=== PATIENT | female | born 1935 | race Caucasian/White ===

== ENCOUNTER 2018-09-22 11:25 | Observation (INO) ==
--- NOTE | 2018-09-22 11:01 | Emergency Department Note ---
ED Disposition Clinical Impression: Pneumonia, Pleural effusion, Congestive heart failure Disposition: Admitted as Observation Condition on Discharge: Fair Instructions: Pneumonia-Adult Time of Disposition: 12:50 - Critical Care Critical Care Time: No Attestation: On , the high probability of a clinically significant, sudden or life threatening deterioration of the following system(s) required my full and direct attention, intervention and personal management. The time I documented below is in addition to time spent performing reported procedures but includes the following listed in this critical care notation. Medical Decision Making - Medical Records Medical records reviewed: Yes: I reviewed the patient's medical records. - Meir Inquiry Pt receiving controlled substance: No Meir was queried for this patient: No Vital Signs: 09/22/18 10:53 09/22/18 12:20 Temperature 101.9 F H Temperature Source Axillary Pulse Rate 102 H Pulse Rate [Right Brachial] 89 Respiratory Rate 28 H Blood Pressure [Right Arm] 121/70 Blood Pressure Mean [Right Arm] 87 Blood Pressure Source [Right Arm] Automatic Cuff Blood Pressure Position [Right Arm] Sitting 02 Sat by Pulse Oximetry 94 L Oxygen Delivery Method Nasal Cannula Oxygen Flow Rate (LPM) 2 - Lab Data Lab results reviewed: Yes: I reviewed the patient's lab results. Lab Results 09/22/18 10:58: Specimen Source Left brachial, ABG pH 7.49 H, ABG pCO2 25.4 L, ABG pO2 150.6 H, ABG HCO3 18.9 L, ABG Total CO2 19.7 L, ABG O2 Saturation 99, ABG Base Excess -4.5 L, Mihai Test Patient unable 09/22/18 11:20: WBC 7.4, RBC 4.04 L, Hgb 11.8 L, Hct 38.2, MCV 94.6, MCH 29.3, MCHC 30.9 L, RDW 15.1, Plt Count 156, MPV 9.7, Neut % (Auto) 80.4 H, Lymph % (Auto) 10.7, [place] % (Auto) 8.5, Eos % (Auto) 0.3, Baso % (Auto) 0.2, Neut # (Auto) 6.0, Lymph # (Auto) 0.8, [place] # (Auto) 0.6, Eos # (Auto) 0.0, Baso # (Auto) 0.0 09/22/18 11:20: Chloride 116 H, Carbon Dioxide 22, Anion Gap 20.6 H, BUN 54 H, Creatinine 2.35 H, Estimated Creat Clear 16, Estimated GFR 20 L, Est GFR ( Amer) 24 L, Glucose 127 H, Calcium 8.9, Total Bilirubin 0.7, ALT 109 H, Alkaline Phosphatase 111, Troponin I 0.16 H, Total Protein 6.8, Albumin 3.0 L, Globulin 3.8 H, Albumin/Globulin Ratio 0.8 L 09/22/18 11:20: Lactate 1.5 09/22/18 11:20: B-Natriuretic Peptide > 5000 H Result diagrams: 09/22/18 11:20 09/22/18 11:20 Orders (Tests/Meds): ED MEDICATIONS Discontinued Medications Generic Name Dose Route Start Last Admin Trade Name Freq PRN Reason Stop Dose Admin Albuterol/Ipratropium 3 ml 09/22/18 11:20 09/22/18 12:20 Duoneb 3ml Neb IH 09/22/18 11:21 3 ml ONCE ONE Administration Methylprednisolone Sodium Succinate 125 mg 09/22/18 11:20 09/22/18 12:12 Solu-Medrol 125mg/2ml Vial IV 09/22/18 11:21 125 mg ONCE ONE Administration ORDERS Category Date Time Status Comprehensive Metabolic Panel Stat Lab 09/22/18 11:20 Results Troponin I Stat Lab 09/22/18 11:20 Results Blood Culture Stat Micro 09/22/18 11:20 Received General Adult HPI - General Chief complaint: Shortness of Breath/Dyspnea Stated complaint: shortness of air Time Seen by Provider: 09/22/18 10:58 Mode of Arrival: EMS Source of Information: EMS Limitations: No Limitations Description of Symptoms (Recalled from ER Triage Doc. by RN): very short of air, xray taken on site reveals possible chf vs pneumonia - History of Present Illness HPI narrative: fever, tachypnea, dyspnea, and decreased mental status. - Related Data Allergies Allergy/AdvReac Type Severity Reaction Status Date / Time No Known Allergies Allergy Unverified 01/31/17 14:18 [facility] History - Hepatitis A Screen Drug use history?: No High risk sexual behaviors?: No History of sexually transmitted infection?: No Currently employed?: No Childcare worker?: No Do you have indoor plumbing?: Yes Do you have electricity?: Yes Attestation statement:: This patient has been screened for Hepatitis A risk factors. I have reviewed the patient's past medical history: Yes ROS Obtained: Yes All systems reviewed & no additional complaints, Yes unobtainable due to mental condition - Constitutional Constitutional: Reports fever(s) - Cardiovascular Cardiovascular: Denies chest pain, Reports rapid heart rate - Respiratory Respiratory: Yes chest congestion, Yes cough, Yes dyspnea - Gastrointestinal Gastrointestingal: Denies: abdominal pain, vomiting - Genitourinary Female Genitourinary: Denies hematuria - Musculoskeletal Musculoskeletal: Denies joint stiffness, Denies joint swelling - Integumentary/Breasts Skin/Breast: Denies rash - Neurologic Neurologic: Reports behavioral changes, Reports confusion - Hematologic/Lymphatic Henatologic/Lymphatic: Denies easy bleeding Physical Exam - General General appearance: obtunded - Head Head exam: atraumatic - Eye Eye exam: Present: normal appearance - ENT ENT exam: Present: normal exam, normal oropharynx, mucous membranes moist, TM's normal bilaterally, normal external ear exam - Neck Neck exam: Present: normal inspection, full ROM, trachea midline. Absent: meningismus, lymphadenopathy - Respiratory Respiratory exam: Present: respiratory distress, prolonged expiratory phase, other (rhonchi , decreased BS right base) - Cardiovascular Cardiovascular exam: Present: regular rate - Abdominal Exam Abdominal exam: Present: soft. Absent: distention, tenderness - Extremities Exam Extremities exam: Present: normal inspection - Neurological Exam Neurological exam: Present: CN II-XII intact, other (unable to test). Absent: alert, oriented X3 - Psychiatric Psychiatric exam: Present: normal affect, normal mood - Skin Skin exam: Present: warm, dry, intact, normal color
[2018-09-22 11:18] LABS: ABG Base Excess -4.5 mmol/L (-2.4-2.3); ABG HCO3 18.9 mmhg (22.0-26.0); ABG Oxygen Saturation 99 % (90-100); ABG PCO2 25.4 mmhg (35.0-45.0); ABG PH 7.49 mmol/L (7.35-7.45); ABG PO2 150.6 mmhg (80-100); ABG TCO2 19.7 mmhg (23-27)
[2018-09-22 11:21] LABS: Allen's Test PATIENT UNABLE
[2018-09-22 11:47] LABS: Basophils % 0.2 % (0.1-2.0); Eosinophils % 0.3 % (0.1-12.0); Hematocrit 38.2 % (37.0-47.0); Hemoglobin 11.8 g/dL (12.2-16.2); Lymphocytes # 0.8 K/mm3 (0.7-4.5); Lymphocytes % 10.7 % (10-50); Mean Corpuscular HGB Conc 30.9 g/dL (31.8-35.4); Mean Corpuscular Volume 94.6 fl (81-99); Mean Platelet Volume 9.7 fl (7.4-10.4); Monocytes # 0.6 K/mm3 (0.1-1.0); Monocytes % 8.5 % (1.7-9.3); Neutrophils % 80.4 % (37.0-80.0); Platelet Count 156 K/mm3 (142-424); Red Blood Count 4.04 M/mm3 (4.20-5.40); Red Cell Distribution Width 15.1 % (11.5-17.5); White Blood Count 7.4 K/mm3 (4.8-10.8)
[2018-09-22 11:58] LABS: Albumin/Globulin Ratio 0.8 (1.1-1.8); Bilirubin,Total 0.7 mg/dL (0.2-1.0); Calcium 8.9 mg/dL (8.5-10.1); Globulin 3.8 gm/dl (1.3-3.2); Total Protein,Serum 6.8 gm/dL (6.4-8.2)
[2018-09-22 12:55] LABS: Anion Gap 19.9 mEq/L (5-15)
--- NOTE | 2018-09-22 14:27 | History & Physical Report ---
*Admission Date: 09/22/18 *Chief complaint: Respiratory distress *History of present illness: 83-year-old female with history of dementia who presents from shelter due to failure of outpatient treatment for pneumonia. Had x-rays performed earlier this week showing some concern for pneumonia versus CHF. Was started on antibiotics but has not improved. Due to worsening respiratory status, transferred to the ER today for reassessment. Found to have tachypnea greater than 24, tachycardia greater than 90, pneumonia on chest x-ray. Meeting criteria for sepsis. Will admit to medicine for further management of pneumonia and sepsis. Additionally patient found to have acute kidney injury and hyperna tremic dehydration. Family at bedside. Clear on CODE STATUS of DNR. Understand the patient's condition is serious. In the setting of her underlying dementia and debility, will continue with aggressive treatments however if not improving in 2 to 3 days, will reevaluate course. [facility] History I have reviewed the patient's past medical history: Yes Medical History: Reports:: Hyperlipidemia, Hypertension Denies:: Cancer, Diabetes Mellitus Type 1, Diabetes Mellitus Type 2, MRSA *Have you ever received a pneumonia vaccine?: Yes *Have you received a flu vaccine this season?: Yes Other Medical History: Reports: Anemia, Arthritis Amputation: No Fractures: No - *Social History Educational Level: Completed High School Smoking Status: Former smoker Tobacco Type: cigarettes Alcohol Intake: never *Occupational Status:: retired Housing: shelter *Travel in the last 8 weeks: None - Psychiatric History Expresses thoughts of harming self/others: None Suicide Plan Description: No Plan Family Hx:: Unable to obtain Review of Systems - Review of Systems Review of systems:: unable to obtain - *Neurologic Reports behavioral changes, Reports confusion Meds Home Medications Medication Instructions Recorded Confirmed Type Diclofen Sod/Kinesiology Tape 1 each TP DAILY 09/22/18 09/22/18 History [Diclo Gel 1%-Xrylix Sheet Kit] Donepezil HCl [Aricept 10mg 10 mg PO HS 09/22/18 09/22/18 History tablet] Gluc/Vicente-MSM#1/C/Richard/Vega/Bor 1 each PO DAILY 09/22/18 09/22/18 History [Osteo Bi-Flex Caplet] Ipratropium Stacy [Atrovent Hfa 1 puff IH Q4H 09/22/18 09/22/18 History Inh] Levothyroxine Sodium 50 mcg PO DAILY 09/22/18 09/22/18 History [Levothyroxine 50mcg (0.05mg) Tab] Memantine HCl [Namenda 10mg 10 mg PO DAILY 09/22/18 09/22/18 History Tablet] Mirtazapine 7.5 mg PO DAILY 09/22/18 09/22/18 History Multivit-Min/Iron/Folic/Vit K1 1 each PO DAILY 09/22/18 09/22/18 History [Centrum Chewables Adults Tab] Omeprazole [Omeprazole 20mg 20 mg PO DAILY 09/22/18 09/22/18 History Capsule] Polyethylene Glycol 3350 [Miralax 17 gm PO DAILYP 09/22/18 09/22/18 History 17gm Packet] Saccharomyces Boulardii [Florastor] 250 mg PO DAILY 09/22/18 09/22/18 History Allergies Allergy/AdvReac Type Severity Reaction Status Date / Time No Known Allergies Allergy Unverified 01/31/17 14:18 Exam Vital signs and Labs for Last 24 Hours: Temp Pulse Resp BP Pulse Ox 97.9 F 104 H 20 147/65 H 99 09/22/18 14:21 09/22/18 14:21 09/22/18 14:21 09/22/18 14:21 09/22/18 14:21 Laboratory Results - last 24 hr 09/22/18 10:58: Specimen Source Left brachial, ABG pH 7.49 H, ABG pCO2 25.4 L, ABG pO2 150.6 H, ABG HCO3 18.9 L, ABG Total CO2 19.7 L, ABG O2 Saturation 99, ABG Base Excess -4.5 L, Mihai Test Patient unable 09/22/18 11:20: WBC 7.4, RBC 4.04 L, Hgb 11.8 L, Hct 38.2, MCV 94.6, MCH 29.3, MCHC 30.9 L, RDW 15.1, Plt Count 156, MPV 9.7, Neut % (Auto) 80.4 H, Lymph % (Auto) 10.7, [place] % (Auto) 8.5, Eos % (Auto) 0.3, Baso % (Auto) 0.2, Neut # (Auto) 6.0, Lymph # (Auto) 0.8, [place] # (Auto) 0.6, Eos # (Auto) 0.0, Baso # (Auto) 0.0 09/22/18 11:20: Sodium 152 H*, Potassium 5.9 H, Chloride 116 H, Carbon Dioxide 22, Anion Gap 19.9 H, BUN 54 H, Creatinine 2.35 H, Estimated Creat Clear 16, Estimated GFR 20 L, Est GFR ( Amer) 24 L, Glucose 127 H, Calcium 8.9, Total Bilirubin 0.7, AST 119 H, ALT 109 H, Alkaline Phosphatase 111, Troponin I 0.16 H, Total Protein 6.8, Albumin 3.0 L, Globulin 3.8 H, Albumin/Globulin Ratio 0.8 L 09/22/18 11:20: Lactate 1.5 09/22/18 11:20: B-Natriuretic Peptide > 5000 H I & O for Last 24 hours: Intake & Output 09/19/18 09/20/18 09/21/18 09/22/18 23:59 23:59 23:59 23:59 Intake Total 150 / 150 Balance 150 / 150 Weight 47.174 kg - *Routine HEENT Exam Head: Present: normocephalic, atraumatic Eye: Present: EOMI, PERRL ENT: Present: mucous membranes moist Comments: Nasal cannula in place - *Routine Neck Exam Present: supple, full ROM - *Routine Respiratory Exam Comments: Good air movement bilaterally, fine crackles right lower base - *Routine Cardiovascular Exam Present: tachycardia. Absent: murmur - *Routine Abdominal Exam Present: soft, normoactive bowel sounds. Absent: rigid - *Routine Rectal Exam Patient deferred: visual exam - *Routine Exam Patient deferred: external exam - *Routine Extremities Exam Absent: cyanosis, clubbing, edema - *Routine Skin Exam Present: intact. Absent: cyanosis, erythema - *Routine Neurological Exam Present: alert, altered mental status. Absent: oriented X3 Nonverbal Assessment and Plan (1) Dementia Current visit: Yes Status: Chronic Qualifiers: Alzheimer's disease onset: unspecified onset Dementia behavioral disturbance: without behavioral disturbance Category: Medical Code(s): F03.90 - Unspecified dementia without behavioral disturbance (2) Congestive heart failure Current visit: Yes Status: Acute Category: Medical Code(s): I50.9 - Heart failure, unspecified (3) Hyperkalemia Current visit: Yes Status: Acute Category: Medical Code(s): E87.5 - Hyperkalemia (4) Hypernatremia Current visit: Yes Status: Acute Category: Medical Code(s): E87.0 - Hyperosmolality and hypernatremia (5) Pneumonia Current visit: Yes Status: Acute Qualifiers: Pneumonia type: due to unspecified organism Laterality: right Lung location: lower lobe of lung Qualified Code(s): J18.1 - Lobar pneumonia, unspecified organism Category: Medical Code(s): J18.9 - Pneumonia, unspecified organism (6) Sepsis Current visit: Yes Status: Acute Qualifiers: Sepsis type: sepsis due to unspecified organism Severe sepsis acute organ dysfunction type: acute respiratory failure Acute respiratory failure type: with hypoxia Category: Medical Code(s): A41.9 - Sepsis, unspecified organism (7) Krnrh-ep-jnozsgv kidney injury Current visit: Yes Status: Acute Category: Medical Code(s): N17.9 - Acute kidney failure, unspecified; N18.9 - Chronic kidney disease, unspecified - Assessment and plan all Dx Assessment and Plan for all problems:: Ms. Drew is an 83-year-old female with debility and dementia who presented with acute respiratory failure, sepsis, acute on chronic kidney injury. Initiate broad-spectrum antibiotics. Oxygen initiated with goal of greater than 92 while awake, greater than 88% while asleep. Will monitor for improvement with fluid resuscitation to address her electrolyte disturbances. Repeat labs in the morning to monitor for improvement in kidney function. Condition serious, prognosis poor. Requires inpatient acute management
[2018-09-23 07:30] LABS: Basophils % 0.1 % (0.1-2.0); Eosinophils % 0.1 % (0.1-12.0); Hematocrit 36.8 % (37.0-47.0); Hemoglobin 11.2 g/dL (12.2-16.2); Lymphocytes # 0.5 K/mm3 (0.7-4.5); Lymphocytes % 8.2 % (10-50); Mean Corpuscular HGB Conc 30.5 g/dL (31.8-35.4); Mean Corpuscular Volume 96.7 fl (81-99); Mean Platelet Volume 9.9 fl (7.4-10.4); Monocytes # 0.3 K/mm3 (0.1-1.0); Neutrophils # 5.1 K/mm3 (1.8-7.8); Neutrophils % 86.6 % (37.0-80.0); Platelet Count 125 K/mm3 (142-424); Red Blood Count 3.81 M/mm3 (4.20-5.40); Red Cell Distribution Width 15.1 % (11.5-17.5); White Blood Count 5.9 K/mm3 (4.8-10.8)
[2018-09-23 08:02] LABS: Anion Gap 15.6 mEq/L (5-15); Calcium 8.3 mg/dL (8.5-10.1)
[2018-09-23 08:36] LABS: Lymphocytes % 8 % (10-50); Monocytes % 1 % (2-9); Neutrophils % 91 % (42-76); Total Cells Counted 100
--- NOTE | 2018-09-23 09:10 | Progress Note ---
Internal Medicine - PN: Subj *Date: 09/23/18 *Time: 09:59 Interval history: Remained afebrile overnight. Stable on 2 L nasal cannula oxygen. Patient has no complaints this morning. Little more alert with yes/no responses to questions. Afebrile. Denies abdominal pain, nausea, chest pain. Exam Vital signs and Labs for Last 24 Hours: Temp Pulse Resp BP Pulse Ox 97.6 F 101 H 20 109/69 L 96 09/23/18 08:08 09/23/18 08:08 09/23/18 08:08 09/23/18 08:08 09/23/18 08:08 Laboratory Results - last 24 hr 09/22/18 10:58: Specimen Source Left brachial, ABG pH 7.49 H, ABG pCO2 25.4 L, ABG pO2 150.6 H, ABG HCO3 18.9 L, ABG Total CO2 19.7 L, ABG O2 Saturation 99, ABG Base Excess -4.5 L, Mihai Test Patient unable 09/22/18 11:20: WBC 7.4, RBC 4.04 L, Hgb 11.8 L, Hct 38.2, MCV 94.6, MCH 29.3, MCHC 30.9 L, RDW 15.1, Plt Count 156, MPV 9.7, Neut % (Auto) 80.4 H, Lymph % (Auto) 10.7, [place] % (Auto) 8.5, Eos % (Auto) 0.3, Baso % (Auto) 0.2, Neut # (Auto) 6.0, Lymph # (Auto) 0.8, [place] # (Auto) 0.6, Eos # (Auto) 0.0, Baso # (Auto) 0.0 09/22/18 11:20: Sodium 152 H*, Potassium 5.9 H, Chloride 116 H, Carbon Dioxide 22, Anion Gap 19.9 H, BUN 54 H, Creatinine 2.35 H, Estimated Creat Clear 16, Estimated GFR 20 L, Est GFR ( Amer) 24 L, Glucose 127 H, Calcium 8.9, Total Bilirubin 0.7, AST 119 H, ALT 109 H, Alkaline Phosphatase 111, Troponin I 0.16 H, Total Protein 6.8, Albumin 3.0 L, Globulin 3.8 H, Albumin/Globulin Ratio 0.8 L 09/22/18 11:20: Lactate 1.5 09/22/18 11:20: B-Natriuretic Peptide > 5000 H 09/23/18 07:00: WBC 5.9, RBC 3.81 L, Hgb 11.2 L, Hct 36.8 L, MCV 96.7, MCH 29.5, MCHC 30.5 L, RDW 15.1, Plt Count 125 L, MPV 9.9, Neut % (Auto) 86.6 H, Lymph % (Auto) 8.2 L, [place] % (Auto) 5.0, Eos % (Auto) 0.1, Baso % (Auto) 0.1, Neut # (Auto) 5.1, Lymph # (Auto) 0.5 L, [place] # (Auto) 0.3, Eos # (Auto) 0.0, Baso # (Auto) 0.0, Total Counted 100, Neutrophils % (Manual) 91 H, Lymphocytes % (Manual) 8 L, Monocytes % (Manual) 1 L, Platelet Estimate Slight decrease, RBC Morphology Not Reportable, Acanthocytes (Spur) 1+ I & O for Last 24 hours: Intake & Output 09/20/18 09/21/18 09/22/18 09/23/18 23:59 23:59 23:59 23:59 Intake Total 630 / 630 1751 / 1751 Balance 630 / 630 1751 / 1751 Weight 47.174 kg 48.619 kg Narrative: - *Routine HEENT Exam Head: Present: normocephalic, atraumatic Eye: Present: EOMI ENT: Present: mucous membranes moist Comments: Nasal cannula in place - *Routine Neck Exam Present: supple, full ROM - *Routine Respiratory Exam Comments: Good air movement bilaterally, fine stable crackles right lower base - *Routine Cardiovascular Exam Present: tachycardia. Absent: murmur - *Routine Abdominal Exam Present: soft, normoactive bowel sounds. Absent: rigid - *Routine Extremities Exam Absent: cyanosis, clubbing, edema - *Routine Skin Exam Present: intact. Absent: cyanosis, erythema - *Routine Neurological Exam Present: alert, altered mental status. Absent: oriented Assessment and Plan (1) Dementia Current visit: Yes Status: Chronic Qualifiers: Alzheimer's disease onset: unspecified onset Dementia behavioral disturbance: without behavioral disturbance Category: Medical Code(s): F03.90 - Unspecified dementia without behavioral disturbance (2) Congestive heart failure Current visit: Yes Status: Acute Category: Medical Code(s): I50.9 - Heart failure, unspecified (3) Hyperkalemia Current visit: Yes Status: Acute Category: Medical Code(s): E87.5 - Hyperkalemia (4) Hypernatremia Current visit: Yes Status: Acute Category: Medical Code(s): E87.0 - Hyperosmolality and hypernatremia (5) Pneumonia Current visit: Yes Status: Acute Qualifiers: Pneumonia type: due to unspecified organism Laterality: right Lung location: lower lobe of lung Qualified Code(s): J18.1 - Lobar pneumonia, unspecified organism Category: Medical Code(s): J18.9 - Pneumonia, unspecified organism (6) Sepsis Current visit: Yes Status: Acute Qualifiers: Sepsis type: sepsis due to unspecified organism Severe sepsis acute organ dysfunction type: acute respiratory failure Acute respiratory failure type: with hypoxia Category: Medical Code(s): A41.9 - Sepsis, unspecified organism (7) Zcxaw-iy-[id number] kidney injury Current visit: Yes Status: Acute Category: Medical Code(s): N17.9 - Acute kidney failure, unspecified; N18.9 - Chronic kidney disease, unspecified - Assessment and plan all Dx Assessment and Plan for all problems:: Patient showing marginal improvement over the past 24 hours. Tolerating fluid repletion with improvement in sodium however still slightly elevated above normal. Potassium is normalized. Kidney function gradually improving. Little bit more responsive on exam today. Continues to require supplemental oxygen. Will have nursing perform bedside swallow in anticipation of initiating diet. Overall patient showing response to current therapy. Awaiting cultures for de- escalation of antibiotics. Continues to require acute management.
--- NOTE | 2018-09-23 13:23 | Pharmacy Consult Notes ---
[facility] Pharmacy VTE Monitoring - Patient Demographics Admission date: 09/23/18 Report Date: 09/23/18 Time: 13:23 Allergies/Adverse Reactions: Patient Allergies No Known Allergies Allergy (Unverified 01/31/17 14:18) Height: 1.52 m Weight: 48.619 kg Patient Problems: Current Active Problems Pneumonia (Acute) Pleural effusion (Acute) Congestive heart failure (Acute) Hypernatremia (Acute) Hyperkalemia (Acute) Dementia (Chronic) Sepsis (Acute) Iavdg-xt-rplmsis kidney injury (Acute) - VTE Risk Labs: VTE Related Lab Results Hgb 11.2 g/dL (12.2-16.2) L 09/23/18 07:00 Hct 36.8 % (37.0-47.0) L 09/23/18 07:00 Plt Count 125 K/mm3 (142-424) L 09/23/18 07:00 BUN 46 mg/dL (7-18) H 09/23/18 07:00 Creatinine 1.93 mg/dL (0.55-1.02) H 09/23/18 07:00 Estimated Creat Clear 16 mL/min (50-200) 09/23/18 07:00 VTE Score: 3 VTE Risk Level: Low Risk - Prophylaxis Types of VTE Prophylaxis: TEDS Knee High (ZULEMA HOSE ORDER PLACED) Location of Applied Device: Bilateral Lower Extremeties
[2018-09-24 06:25] LABS: Basophils % 0.1 % (0.1-2.0); Eosinophils # 0.3 K/mm3 (0.0-0.4); Eosinophils % 3.5 % (0.1-12.0); Hemoglobin 10.5 g/dL (12.2-16.2); Lymphocytes # 0.8 K/mm3 (0.7-4.5); Lymphocytes % 10.5 % (10-50); Mean Corpuscular Volume 97.3 fl (81-99); Mean Platelet Volume 9.7 fl (7.4-10.4); Monocytes # 0.4 K/mm3 (0.1-1.0); Monocytes % 4.7 % (1.7-9.3); Neutrophils # 6.4 K/mm3 (1.8-7.8); Neutrophils % 81.3 % (37.0-80.0); Platelet Count 128 K/mm3 (142-424); Red Cell Distribution Width 15.1 % (11.5-17.5); White Blood Count 7.8 K/mm3 (4.8-10.8)
[2018-09-24 06:57] LABS: Anion Gap 13.3 mEq/L (5-15); Calcium 8.1 mg/dL (8.5-10.1)
--- NOTE | 2018-09-24 07:43 | Progress Note ---
Internal Medicine - PN: Subj *Date: 09/24/18 *Time: 07:41 Interval history: Patient is more alert, some garbled speech but is talkative and sensitive to tactile stimuli. Exam Vital signs and Labs for Last 24 Hours: Temp Pulse Resp BP Pulse Ox 97.6 F 70 18 110/61 97 09/24/18 04:00 09/24/18 06:29 09/24/18 04:00 09/24/18 04:00 09/24/18 06:29 Laboratory Results - last 24 hr 09/23/18 07:00: WBC 5.9, RBC 3.81 L, Hgb 11.2 L, Hct 36.8 L, MCV 96.7, MCH 29.5, MCHC 30.5 L, RDW 15.1, Plt Count 125 L, MPV 9.9, Neut % (Auto) 86.6 H, Lymph % (Auto) 8.2 L, [place] % (Auto) 5.0, Eos % (Auto) 0.1, Baso % (Auto) 0.1, Neut # (Auto) 5.1, Lymph # (Auto) 0.5 L, [place] # (Auto) 0.3, Eos # (Auto) 0.0, Baso # (Auto) 0.0, Total Counted 100, Neutrophils % (Manual) 91 H, Lymphocytes % (Manual) 8 L, Monocytes % (Manual) 1 L, Platelet Estimate Slight decrease, RBC Morphology Not Reportable, Acanthocytes (Spur) 1+ 09/23/18 07:00: Sodium 149 H, Potassium 4.6 D, Chloride 116 H, Carbon Dioxide 22, Anion Gap 15.6 H, BUN 46 H, Creatinine 1.93 H, Estimated Creat Clear 16, Estimated GFR 25 L, Est GFR ( Amer) 30 L D, Glucose 221 H D, Calcium 8.3 L 09/24/18 05:53: B-Natriuretic Peptide 1740 H 09/24/18 05:53: WBC 7.8 D, RBC 3.60 L, Hgb 10.5 L, Hct 35.0 L, MCV 97.3, MCH 29.2, MCHC 30.0 L, RDW 15.1, Plt Count 128 L, MPV 9.7, Neut % (Auto) 81.3 H, Lymph % (Auto) 10.5, [place] % (Auto) 4.7, Eos % (Auto) 3.5, Baso % (Auto) 0.1, Neut # (Auto) 6.4, Lymph # (Auto) 0.8, [place] # (Auto) 0.4, Eos # (Auto) 0.3, Baso # (Auto) 0.0 09/24/18 05:53: Sodium 144, Potassium 4.3, Chloride 112 H, Carbon Dioxide 23, Anion Gap 13.3, BUN 37 H, Creatinine 1.76 H, Estimated Creat Clear 19, Estimated GFR 27 L, Est GFR ( Amer) 33 L, Glucose 141 H D, Calcium 8.1 L I & O for Last 24 hours: Intake & Output 09/21/18 09/22/18 09/23/18 09/24/18 11:59 11:59 11:59 11:59 Intake Total 2381 / 2381 3289 / 3289 Balance 2381 / 2381 3289 / 3289 Weight 125 lb 107 lb 3 oz 116 lb 3 oz Narrative: Lungs are clear bilaterally, heart rate is regular. Much more combative with personal care issues per nursing staff. Oropharynx slightly dry. Moves all extremities well. Assessment and Plan (1) Dementia Current visit: Yes Status: Chronic Qualifiers: Alzheimer's disease onset: unspecified onset Dementia behavioral disturbance: without behavioral disturbance Category: Medical Code(s): F03.90 - Unspecified dementia without behavioral disturbance (2) Congestive heart failure Current visit: Yes Status: Acute Category: Medical Code(s): I50.9 - Heart failure, unspecified (3) Hyperkalemia Current visit: Yes Status: Acute Category: Medical Code(s): E87.5 - Hyperkalemia (4) Hypernatremia Current visit: Yes Status: Acute Category: Medical Code(s): E87.0 - Hyperosmolality and hypernatremia (5) Pneumonia Current visit: Yes Status: Acute Qualifiers: Pneumonia type: due to unspecified organism Laterality: right Lung location: lower lobe of lung Qualified Code(s): J18.1 - Lobar pneumonia, unspecified organism Category: Medical Code(s): J18.9 - Pneumonia, unspecified organism (6) Sepsis Current visit: Yes Status: Acute Qualifiers: Sepsis type: sepsis due to unspecified organism Severe sepsis acute organ dysfunction type: acute respiratory failure Acute respiratory failure type: with hypoxia Category: Medical Code(s): A41.9 - Sepsis, unspecified organism (7) Ejgst-zr-bfyoano kidney injury Current visit: Yes Status: Acute Category: Medical Code(s): N17.9 - Acute kidney failure, unspecified; N18.9 - Chronic kidney disease, unspecified - Assessment and plan all Dx Assessment and Plan for all problems:: Overall improving, kidney injury improving, leukocytosis improving. Speech evaluation. And if able to swallow would consider transfer back to shelter for ongoing palliative care.
--- NOTE | 2018-09-24 14:16 | Discharge Summary ---
General - General Admission date:: 09/22/18 Discharge date: 09/24/18 HPI HPI: 83-year-old female with history of dementia who presents from [facility] due to failure of outpatient treatment for pneumonia. Had x-rays performed earlier this week showing some concern for pneumonia versus CHF. Was started on antibiotics but has not improved. Due to worsening respiratory status, transferred to the ER today for reassessment. Found to have tachypnea greater than 24, tachycardia greater than 90, pneumonia on chest x-ray. Meeting criteria for sepsis. Will admit to medicine for further management of pneumonia and sepsis. Additionally patient found to have acute kidney injury and hypernatremic dehydration. Family at bedside. Clear on CODE STATUS of DNR. Understand the patient's condition is serious. In the setting of her underlying dementia and debility, will continue with aggressive treatments however if not improving in 2 to 3 days, will reevaluate course. Hospital Course Hospital Course: Patient was admitted, given antibiotics and fluids, she was continued to be under a DNR status. Overall patient improved over the next 24 hours and was able to swallow and take some medicines this morning. She was able to respond to tactile and verbal stimuli. Speech therapy saw patient and felt that she would do well with a nectar thick liquid diet along with soft mechanical and spoonfed diet. Patient did well with this, and has had no fevers overnight. She will be transferred back to the [facility] to finish up a 7-day course of levofloxacin with the above-noted dietary recommendations. Please note she maintains a DNR status will continue to respect this at the [facility]. Objective Vital signs: Temp Pulse Resp BP Pulse Ox 98.2 F 89 18 121/71 98 09/24/18 11:12 09/24/18 13:27 09/24/18 11:12 09/24/18 11:12 09/24/18 11:12 Narrative: Somewhat resistant to care but otherwise cooperative. Oropharynx clear, lungs have good air movement, heart rate regular. Abdomen soft and nontender. Perfusion is much improved. Neurologic exam nonfocal. Sensorium is clouded at baseline, unable to obtain good neurologic exam but she is able to spontaneously move her extremities. No JVD. No other head or neck issues. Results Labs on day of discharge: Labs from last 24 hours 09/24/18 09/24/18 09/24/18 05:53 05:53 05:53 WBC 7.8 D RBC 3.60 L Hgb 10.5 L Hct 35.0 L MCV 97.3 MCH 29.2 MCHC 30.0 L RDW 15.1 Plt Count 128 L MPV 9.7 Neut % (Auto) 81.3 H Lymph % (Auto) 10.5 [place] % (Auto) 4.7 Eos % (Auto) 3.5 Baso % (Auto) 0.1 Neut # (Auto) 6.4 Lymph # (Auto) 0.8 [place] # (Auto) 0.4 Eos # (Auto) 0.3 Baso # (Auto) 0.0 Sodium 144 Potassium 4.3 Chloride 112 H Carbon Dioxide 23 Anion Gap 13.3 BUN 37 H Creatinine 1.76 H Estimated Creat Clear 19 Estimated GFR 27 L Est GFR ( Amer) 33 L Glucose 141 H D Calcium 8.1 L B-Natriuretic Peptide 1740 H Preliminary micro results at discharge 09/22/18 11:20 Blood Culture - Preliminary Blood NO GROWTH AFTER 48 HOURS 09/22/18 11:20 Blood Culture - Preliminary Blood NO GROWTH AFTER 48 HOURS DS: Diagnosis - Discharge Diagnosis (1) Dementia Status: Chronic (2) Congestive heart failure Status: Chronic (3) Hyperkalemia Status: Resolved (4) Hypernatremia Status: Resolved (5) Pneumonia Status: Acute (6) Sepsis Status: Resolved (7) [id number] kidney injury Status: Resolved Discharge Plan - Patient Discharge Instructions ACTIVITY: Continue current activity DIET: continue same diet Patient Instructions: DI for Pneumonia -- Adult, DI for Respiratory Failure - Follow up Plan Follow up with: Mitzi Mcguire APRN [Nurse Practitioner] - Disposition: Xfer SNF Home Medications: Home Medications Medication Instructions Recorded Confirmed Type Donepezil HCl [Aricept 10mg 10 mg PO HS 09/22/18 09/22/18 History tablet] Gluc/Vicente-MSM#1/C/Richard/Vega/Bor 1 each PO DAILY 09/22/18 09/22/18 History [Osteo Bi-Flex Caplet] Ipratropium Vina [Atrovent Hfa 1 puff IH Q4H 09/22/18 09/22/18 History Inh] Levothyroxine Sodium 50 mcg PO DAILY 09/22/18 09/22/18 History [Levothyroxine 50mcg (0.05mg) Tab] Memantine HCl [Namenda 10mg 10 mg PO BID 09/22/18 09/23/18 History Tablet] Mirtazapine 7.5 mg PO DAILY 09/22/18 09/22/18 History Multivit-Min/Iron/Folic/Vit K1 1 each PO DAILY 09/22/18 09/22/18 History [Centrum Chewables Adults Tab] Omeprazole [Omeprazole 20mg 20 mg PO DAILY 09/22/18 09/22/18 History Capsule] Polyethylene Glycol 3350 [Miralax 17 gm PO BIDP PRN 09/22/18 09/23/18 History 17gm Packet] Saccharomyces Boulardii [Florastor] 250 mg PO DAILY 09/22/18 09/22/18 History Acetaminophen 650 mg PO Q6HP PRN 09/23/18 09/23/18 History Azithromycin [Azithromycin 500mg 500 mg PO ONCE 09/23/18 09/23/18 History Tab] Azithromycin [Zithromax 250mg 250 mg PO DAILY 09/23/18 09/23/18 History tab] Cefdinir [Omnicef 300mg Capsule] 300 mg PO BID 09/23/18 09/23/18 History Ceftriaxone Sodium [Ceftriaxone] 1 gm IM ONCE 09/23/18 09/23/18 History Diclofenac Sodium [Diclofenac Sod 1 applicatio TP BID 09/23/18 09/23/18 History 100gm Topical Gel] guaiFENesin [Robitussin 200mg/10mL 100 mg PO Q6HP PRN 09/23/18 09/23/18 History Syrup UDC] Prescriptions/Medication Reconciliation: Continued Gluc/Vicente-MSM#1/C/Richard/Vega/Bor [Osteo Bi-Flex Caplet] 1 each PO DAILY Saccharomyces Boulardii [Florastor] 250 mg PO DAILY Polyethylene Glycol 3350 [Miralax 17gm Packet] 17 gm PO BIDP PRN PRN Reason: Constipation Omeprazole [Omeprazole 20mg Capsule] 20 mg PO DAILY Mirtazapine 7.5 mg PO DAILY Memantine HCl [Namenda 10mg Tablet] 10 mg PO BID Ipratropium Vina [Atrovent Hfa Inh] 1 puff IH Q4H Donepezil HCl [Aricept 10mg tablet] 10 mg PO HS Acetaminophen 650 mg PO Q6HP PRN PRN Reason: FEVER/PAIN guaiFENesin [Robitussin 200mg/10mL Syrup UDC] 100 mg PO Q6HP PRN PRN Reason: Cough Diclofenac Sodium [Diclofenac Sod 100gm Topical Gel] 1 applicatio TP BID Cefdinir [Omnicef 300mg Capsule] 300 mg PO BID #10 Azithromycin [Zithromax 250mg tab] 250 mg PO DAILY 4 Days #0 Levothyroxine Sodium [Levothyroxine 50mcg (0.05mg) Tab] 50 mcg PO DAILY Multivit-Min/Iron/Folic/Vit K1 [Centrum Chewables Adults Tab] 1 each PO DAILY Discontinued Ceftriaxone Sodium [Ceftriaxone] 1 gm IM ONCE Azithromycin [Azithromycin 500mg Tab] 500 mg PO ONCE - Problem Reconciliation Problems Reviewed?: Yes
== END 2018-09-24 18:24 ==
LOC: 2ND 11:25 → ER 11:25 → 2ND 14:01
PROVIDERS: ADMIT Internal Medicine Adolescent Medicine; ATTEND Internal Medicine Adolescent Medicine
DX: E87.5 Hyperkalemia; E87.0 Hyperosmolality and hypernatremia; R65.20 Severe sepsis without septic shock; Z79.899 Other long term (current) drug therapy; F03.90 Unspecified dementia, unspecified severity, without behavioral disturbance, psychotic disturbance, mood disturbance, and anxiety; A41.9 Sepsis, unspecified organism; J90 Pleural effusion, not elsewhere classified; N17.9 Acute kidney failure, unspecified; I50.9 Heart failure, unspecified; J18.1 Lobar pneumonia, unspecified organism; J96.01 Acute respiratory failure with hypoxia
CPT/HCPCS: 36415; 70450; 71010; 71045; 80048; 80053; 82803; 83605; 83880; 84484; 85007; 85025; 87040; 92610; 93005; 94640; 94761; 96365; 99284; 99285; G0378; J1335; J1956